=== PATIENT | male | born 1945 | race Caucasian/White ===

== ENCOUNTER → 2016-08-30 | Outpatient (CLI) | payer BC ==
--- NOTE | 2016-08-30 16:56 | DIAGNOSTIC IMAGING REPORT ---
ULTRASOUND LEFT LOWER EXTREMITY VENOUS CLINICAL HISTORY: Cyanosis. COMPARISON STUDY: No priors. TECHNIQUE: Real-time, grayscale, and color Doppler sonography of the deep veins of the left lower extremity was performed from the inguinal crease to the calf. Compression and augmentation were utilized. FINDINGS: There is no sonographic evidence of deep venous thrombosis identified in the left lower extremity. The common femoral, superficial femoral, and popliteal veins are patent and normally compressible. The greater saphenous vein and the profunda femoris vein at the junction with the common femoral vein are clear. The visualized calf veins are patent. IMPRESSION: There is no sonographic evidence of deep venous thrombosis identified in the left lower extremity. Electronically signed by: Orlin Taylor M.D. 08/30/2016 4:55 PM Dictated Date/Time: 08/30/2016 4:54 PM
--- NOTE | 2016-08-30 17:02 | DIAGNOSTIC IMAGING REPORT ---
ULTRASOUND LEFT LOWER EXTREMITY ARTERIAL; ANKLE-BRACHIAL INDICES CLINICAL HISTORY: Cyanosis. COMPARISON STUDY: No priors. TECHNIQUE: Real-time, grayscale, and color Doppler sonography of the arteries of the left lower extremity is performed from the inguinal crease to the foot. Ankle-brachial indices are calculated. FINDINGS: Ankle-brachial indices: Right brachial pressure measures 121 and left brachial pressure measures 113. Pressures in the left posterior tibial artery measure 143 for an SAGAR of 1.18, and pressures in the right dorsalis pedis artery measure 139 for an SAGAR of 1.15. Pressures in the left posterior tibial artery measure 142 for an SAGAR of 1.17, and pressures in the left dorsalis pedis artery measure 137 SAGAR of 1.13. Left lower extremity: There is moderate atherosclerotic plaque and irregularly seen throughout the arteries of the left lower extremity. There are triphasic waveforms in the left common femoral artery with velocities measuring up to 61 cm/s. The left profunda femoris artery is patent with velocities measuring up to 69 cm/s. There are triphasic waveforms seen throughout the left superficial femoral artery with velocities measuring up to 88 cm/s. There are triphasic waveforms in the left popliteal artery with velocities measuring up to 83 cm/s. There is three-vessel runoff to the foot. Velocities within the calf arteries measure up to 122 cm/s. The dorsalis pedis artery is patent with velocities measuring up to 38 cm/s. IMPRESSION: 1. There is no sonographic evidence of high-grade stenosis or focal vessel cut off seen throughout the arteries of the left lower extremity. 2. Ankle-brachial indices as above. Electronically signed by: Orlin Taylor M.D. 08/30/2016 5:00 PM Dictated Date/Time: 08/30/2016 4:55 PM
== END | disposition home or self-care (01) ==
LOC: C.ULTR 15:32
PROVIDERS: ATTEND Nurse Practitioner
DX: R23.0 Cyanosis (principal)